=== PATIENT | female | born 1980 | race Caucasian/White ===

== ENCOUNTER 2019-09-08 10:43 | Day surgery (SDC) | payer BC ==
[~2019-09-08] VITALS: Ht 160 cm; Wt 98.0 kg
[~2019-09-08 10:43] MED LIST: AMOX-291 PO; PROP60CA PO; TERB250T14 PO
[2019-09-08] MEDS ORDERED: LACTATED RINGERS 1,000 ML IV SCH (11:49)
[2019-09-08 11:50] VITALS: BP 158/89
[2019-09-08 11:59] LABS: HCG UR SG 1.015 (1.003-1.030)
[2019-09-08] MEDS ORDERED: GABAPENTIN 300 MG CAPSULE PO ONE (12:00)
[2019-09-08] MEDS ORDERED: ACETAMINOPHEN 500 MG TABLET PO ONE (12:00)
[2019-09-08] MEDS ORDERED: MIDAZOLAM 1 MG/ML, 2ML ONE (12:40)
[2019-09-08] MEDS ORDERED: FENTANYL PF 250 MCG/5ML ONE (12:40)
[2019-09-08] MEDS ORDERED: BUPIVACAINE/PF 0.25% ONE (13:01)
[2019-09-08] MEDS ORDERED: KETOROLAC 30 MG/1 ML ONE (13:20)
[2019-09-08] MEDS ORDERED: EPINEPHRINE 1 MG/ML, 1ML ONE (13:20)
[2019-09-08] MEDS ORDERED: ALBUTEROL SULFATE 200 PUFFS/8.5 GR INH ONE (13:20)
[2019-09-08] MEDS ORDERED: PROMETHAZINE 25 MG/ML, 1ML IV PRN (13:30)
[2019-09-08] MEDS ORDERED: HYDROmorphone 2 MG/ML, 1ML IVPush PRN (13:30)
[2019-09-08] MEDS ORDERED: MEPERIDINE/PF 25MG/ML,1ML IVPush PRN (13:30)
[2019-09-08] MEDS ORDERED: LABETALOL 5MG/ML, 20ML IV PRN (13:30)
[2019-09-08] MEDS ORDERED: hydrALAzine 20 MG/ML, 1ML IV PRN (13:30)
[2019-09-08] MEDS ORDERED: OXYcodone 5 MG/5 ML ORAL.SOL UDC PO PRN (13:30)
[2019-09-08] MEDS ORDERED: HALOPERIDOL 5 MG/ML IV PRN (13:30)
[2019-09-08] MEDS ORDERED: FENTANYL PF 100 MCG/2ML IV PRN (13:30)
[2019-09-08] MEDS ORDERED: SUCCINYLCHOLINE 20 MG/ML, 10ML ONE (14:07)
[2019-09-08] MEDS ORDERED: ONDANSETRON 2MG/ML, 2ML ONE (14:07)
[2019-09-08] MEDS ORDERED: CEFAZOLIN 1,000 MG ONE (14:07)
[2019-09-08] MEDS ORDERED: PROPOFOL 10 MG/ML, 20ML ONE (14:07)
[2019-09-08] MEDS ORDERED: GLYCOPYRROLATE 0.2MG/1ML, 5ML ONE (14:07)
[2019-09-08] MEDS ORDERED: NEOSTIGMINE 1 MG/ML, 10ML ONE (14:07)
[2019-09-08] MEDS ORDERED: DEXAMETHASONE 4 MG/ML, 1ML ONE (14:07)
[2019-09-08] MEDS ORDERED: ROCURONIUM 10MG/ML,5ML ONE (14:07)
[2019-09-08] MEDS ORDERED: FENTANYL PF 100 MCG/2ML ONE (14:52)
[2019-09-08] MEDS ORDERED: OXYcodone 5 MG/5 ML ORAL.SOL UDC ONE (14:52)
== END 2019-09-08 16:35 | disposition home or self-care (01) ==
LOC: OUT 10:43 → EDSEX 10:43 → OUT 16:35
PROVIDERS: ATTEND Specialist
DX: Z30.2 Encounter for sterilization (principal); Z30.432 Encounter for removal of intrauterine contraceptive device; N73.6 Female pelvic peritoneal adhesions (postinfective); I10 Essential (primary) hypertension; F41.9 Anxiety disorder, unspecified; E66.9 Obesity, unspecified; F17.210 Nicotine dependence, cigarettes, uncomplicated; Z68.39 Body mass index [BMI] 39.0-39.9, adult; Z80.41 Family history of malignant neoplasm of ovary; Z80.49 Family history of malignant neoplasm of other genital organs
CPT/HCPCS: 58301; 58670; 81025; 88302; J0171; J0330; J0690; J1100; J1885; J2250; J2405; J2704; J2710; J3010; J3490; J7120

== ENCOUNTER → 2019-10-28 | Outpatient (CLI) | payer BC | END | disposition home or self-care (01) | LOC: CFH 07:55 | PROVIDERS: ATTEND Internal Medicine Cardiovascular Disease | DX: I10 Essential (primary) hypertension (principal); R07.89 Other chest pain | CPT/HCPCS: 78452; 93017; 93306; A9502 ==